=== PATIENT | female | born 1980 | race Caucasian/White ===

== ENCOUNTER 2018-04-07 19:56 | Emergency (ER) | payer MEDICAID ==
[~2018-04-07] VITALS: Ht 152.4 cm; Wt 55.8 kg
[2018-04-07 20:05] VITALS: BP 112/91
--- NOTE | 2018-04-07 20:10 | NUR ---
Pt ambulated to bed 11 with VSS.
--- NOTE | 2018-04-07 20:10 | NUR ---
Patient to bed 11. RN evaluating patient at bedside.
--- NOTE | 2018-04-07 20:53 | NUR ---
37 YO F BIB . C/O OF DIZZINES FOR THE LAST 15 MINUTES AND EARLY THIS MORNING. +NAUSEA W/O VOMITING. DENIES DIAREAH. DENIES FALLS. BED IN LOWER LOCKED POSITION. BEDRAILS UP X2. PT IN GOWN. ER MD MADE AWARE OF PT STATUS. WILL CONTINUE TO MONITOR.
[2018-04-07] MEDS ORDERED: NACL 0.9% 1,000 ML IV ONE (21:05)
--- NOTE | 2018-04-07 21:33 | NUR ---
PT TO RADIOLOGY [facility]IA [facility] BY [facility].
[2018-04-07 21:43] LABS: BASOPHILS # (AUTO) 0.1 K/uL (0.00-0.22); BASOPHILS % (AUTO) 0.8 % (0.0-2.0); EOSINOPHILS # (AUTO) 0.1 K/uL (0-0.4); EOSINOPHILS % (AUTO) 1.4 % (0.0-4.0); HEMATOCRIT 46.7 % (36-48); HEMOGLOBIN 15.3 g/dL (12.0-16.0); LYMPHOCYTES # (AUTO) 2.6 K/uL (2.5-16.5); LYMPHOCYTES % (AUTO) 28.1 % (20.5-51.1); MEAN CORPUSCULAR HEMOGLOBIN 29 pg (27-31); MEAN CORPUSCULAR HGB CONC 33 g/dL (33-37); MEAN CORPUSCULAR VOLUME 89.5 fL (80-94); MONOCYTES # (AUTO) 0.6 K/uL (0.8-1.0); MONOCYTES % (AUTO) 6.6 % (1.7-9.3); NEUTROPHILS # (AUTO) 5.7 K/uL (1.8-7.7); NEUTROPHILS % (AUTO) 63.1 % (42.2-75.2); PLATELET COUNT (AUTO) 416 K/uL (140-450); RED BLOOD CELL COUNT(AUTO) 5.22 MIL/uL (4.20-5.40); RED CELL DISTRIBUTION WIDTH 13.1 % (11.6-13.7); WHITE BLOOD COUNT (AUTO) 9.1 K/uL (4.8-10.8)
[2018-04-07 22:20] LABS: ANION GAP 13.3 (8-16); CARBON DIOXIDE 31.5 mmol/L (21-32); CREATININE 0.7 mg/dL (0.6-1.3); POTASSIUM 3.8 mmol/L (3.5-5.1); TOTAL BILIRUBIN 0.2 mg/dL (0.0-1.0)
[2018-04-07 22:21] LABS: ALBUMIN 4.4 g/dL (3.4-5.0)
[2018-04-07 22:53] VITALS: BP 100/48
== END 2018-04-07 22:53 | disposition home or self-care (01) ==
LOC: MED 19:56
DX: R42 Dizziness and giddiness (principal); E11.9 Type 2 diabetes mellitus without complications; I10 Essential (primary) hypertension; E78.00 Pure hypercholesterolemia, unspecified
CPT/HCPCS: 36415; 70450; 80053; 81002; 81025; 85025; 96360; 99284; J7030

== ENCOUNTER → 2018-12-18 | Emergency (ER) | payer MEDICAID ==
[~2018-12-18] VITALS: Ht 154.9 cm; Wt 57.6 kg
[~2018-12-18] MED LIST: ELA25 PO; GABA-638 PO; HUM SUBQ; INSU100S22 SUBQ; LACTULOSE 20 GM/30 ML UDC PO ONE; METF850T PO; PANTOPRAZOLE 40 MG TABEC PO ONE; SITA50TA3 PO
[2018-12-18 21:05] VITALS: BP 135/90
[2018-12-18 23:35] VITALS: BP 135/90
== END | disposition home or self-care (01) ==
LOC: MED 21:02
DX: K59.00 Constipation, unspecified (principal); E11.9 Type 2 diabetes mellitus without complications; Z79.4 Long term (current) use of insulin; Z79.899 Other long term (current) drug therapy
CPT/HCPCS: 74018; 74176; 99284; Q0092